=== PATIENT | male | born 1990 | race Caucasian/White ===

== ENCOUNTER 2018-03-28 11:47 | Emergency (ER) | payer MEDICAID ==
[~2018-03-28] VITALS: Ht 180.3 cm; Wt 67.7 kg
[~2018-03-28 11:47] MED LIST: CLON0.1T PO
[2018-03-28 11:49] VITALS: BP 150/109
[2018-03-28] MEDS ORDERED: LORazepam 2 MG/ML, 1ML IM ONE (12:30)
[2018-03-28] MEDS ORDERED: LORazepam 2 MG/ML, 1ML ONE (12:41)
== END 2018-03-28 12:56 | disposition home or self-care (01) ==
LOC: ED 12:34
DX: F41.1 Generalized anxiety disorder (principal); F32.9 Major depressive disorder, single episode, unspecified
CPT/HCPCS: 93005; 96372; 99284; J2060

== ENCOUNTER 2018-04-09 00:15 | Emergency (ER) | payer MEDICAID ==
[~2018-04-09] VITALS: Ht 180.3 cm; Wt 68.0 kg
[2018-04-09 00:17] VITALS: BP 167/104
[2018-04-09] MEDS ORDERED: LORazepam 1MG TABLET ONE (00:43)
[2018-04-09] MEDS ORDERED: LORazepam 1MG TABLET PO ONE (01:00)
== END 2018-04-09 01:08 | disposition home or self-care (01) ==
LOC: ED 00:43
DX: F41.1 Generalized anxiety disorder (principal); I10 Essential (primary) hypertension; F32.9 Major depressive disorder, single episode, unspecified
CPT/HCPCS: 93005; 99284

== ENCOUNTER 2018-05-03 11:27 | Emergency (ER) | payer MEDICAID ==
[~2018-05-03] VITALS: Ht 180.3 cm; Wt 67.9 kg
[2018-05-03] MEDS ORDERED: DIAZEPAM 5 MG TABLET PO ONE (12:30)
[2018-05-03] MEDS ORDERED: DIAZEPAM 5 MG TABLET ONE (13:00)
[2018-05-03 13:07] VITALS: BP 124/78
== END 2018-05-03 13:07 | disposition home or self-care (01) ==
LOC: ED 13:01
DX: F41.1 Generalized anxiety disorder (principal); Z76.0 Encounter for issue of repeat prescription; F32.9 Major depressive disorder, single episode, unspecified
CPT/HCPCS: 99284

== ENCOUNTER 2018-05-04 09:38 | Emergency (ER) | payer MEDICAID ==
[~2018-05-04] VITALS: Ht 180.3 cm; Wt 67.8 kg
[2018-05-04 09:44] VITALS: BP 161/91
[2018-05-04] MEDS ORDERED: LORazepam 1MG TABLET ONE (11:21)
[2018-05-04] MEDS ORDERED: LORazepam 1MG TABLET PO ONE (11:30)
== END 2018-05-04 12:15 | disposition home or self-care (01) ==
LOC: ED 10:15
DX: F41.1 Generalized anxiety disorder (principal); I10 Essential (primary) hypertension
CPT/HCPCS: 99284

== ENCOUNTER 2018-05-12 12:29 | Emergency (ER) | payer MEDICAID ==
[~2018-05-12] VITALS: Ht 180.3 cm; Wt 70.0 kg
[2018-05-12 12:38] VITALS: BP 130/86
== END 2018-05-12 13:21 | disposition home or self-care (01) ==
LOC: ED 12:37
DX: F41.1 Generalized anxiety disorder (principal); I10 Essential (primary) hypertension
CPT/HCPCS: 99284